=== PATIENT | female | born 1965 | race Caucasian/White ===

== ENCOUNTER 2022-02-12 11:44 | Emergency (ER) | payer BC, SELFPAY ==
[2022-02-12 11:46] VITALS: BP 179/109; PULSE 130; RESP 22; TEMP 36.6; O2SAT 99; BMI 28.3
[2022-02-12 12:12] VITALS: PULSE 84; RESP 14; O2SAT 98
--- NOTE | 2022-02-12 13:00 | US_ITS ---
STUDY: ULTRASOUND OF THE FEMALE PELVIS - COMPLETE REASON FOR EXAM: Female, 56 years old. Very heavy vaginal bleeding LMP: 8 months ago. TECHNIQUE: Transvaginal TECHNICAL QUALITY: Adequate. COMPARISON: None. FINDINGS: The uterus is anteverted and is in a midline position. The uterus measures 11.1 cm x 10.7 cm x 8.4 cm. Normal uterine cervix. The endometrium was not able to be measured due to the large fibroid. There is no demonstrated endometrial mass. There is a 6.6 cm x 6.2 cm by 7.5 cm uterine fibroid. I.U.D. - The patient does not have an I.U.D. The right ovary is non-visualized. The left ovary is non-visualized. There is no fluid in the cul-de-sac. US/Transvaginal Non- IMPRESSION: 6.6 cm x 6.2 cm x 7.5 cm uterine fibroid. Electronically Signed: Geremias Herrera MD at 14:41 EDT ,
--- NOTE | 2022-02-12 13:01 | EDS_ITS ---
HPI HPI - Female History of Present Illness Chief Complaint: Vag Bleeding Narrative Narrative: 56-year-old female presenting with heavy vaginal bleeding that started this morning. She states she is soaking through a pad about every hour. She states she initially tried to go to work today but. Had heavy bleeding which persisted so she came to the ER. She started to feel lightheaded. She states her menstrual periods are not regular anymore. She is not having any pain. She is not concerned for . She is not had any fevers or chills. Denies urinary complaints. No constipation or diarrhea. She is not on any blood thinners. PFSH PFS Home Medications NK 02/12/22 [History Last Taken Unknown] Allergy/AdvReac Type Severity Reaction Status Date / Time No Known Allergies Allergy Verified 02/12/22 11:46 Surgical History Previous section Social History Smoking Status: Never smoker [facility] ED Constitutional Constitutional ED: Denies chills or fever(s) Eyes Eyes: Denies change in vision or diplopia ENT ENT ED: Denies rhinorrhea or sore throat Cardiovascular Cardiovascular: Denies chest pain or palpitations Respiratory/Chest Respiratory/Chest: Denies cough Gastrointestinal Gastrointestinal: Denies abdominal pain, nausea or vomiting Genitourinary Genitourinary ED: Reports other Details: Vaginal bleeding and clot ; Denies dysuria or hematuria Musculoskeletal Musculoskeletal: Denies arthralgias Integumentary Denies abscess Neurologic Neurologic: Denies headache(s) or paresthesias Psychiatric Psychiatric: Denies anxiety or depression EXAM Physical Exam Const Vital Signs: 02/12/22 11:46 02/12/22 12:12 02/12/22 13:55 Temperature 98 F Temperature Source Temporal Pulse Rate 130 H 84 Pulse Rate [Lying] 90 Pulse Rate [Sitting (for 1 minute prior to obtaining)] 93 Pulse Rate [Standing (for 1 minute prior to obtaining)] 112 H Respiratory Rate 22 H 14 Blood Pressure 179/109 H Blood Pressure [Lying] 146/73 H Blood Pressure [Sitting (for 1 minute prior to obtaining)] 153/81 H Blood Pressure [Standing (for 1 minute prior to obtaining)] 157/76 H Blood Pressure Mean 132 Blood Pressure Mean [Lying] 97 Blood Pressure Mean [Sitting (for 1 minute prior to obtaining)] 105 Blood Pressure Mean [Standing (for 1 minute prior to obtaining)] 103 Pulse Ox 99 98 Oxygen Delivery Method Room Air Room Air Positive well nourished General Appearance ED: NAD; Negative for pallor HEENT Reports moist mucous membranes Eyes PERRL and EOMs intact bilaterally Resp normal respiratory effort and clear to auscultation bilaterally Cardio regular rate GI normal to inspection, nondistended, normoactive bowel sounds Palpation: Negative for tender, guarding or rigid Extremity normal to inspection Neuro oriented x3 and CN's II-XII intact bilaterally Sensorium / Orientation: alert and oriented to person Psych mental status grossly normal Skin no rashes or lesions noted and no wounds General Skin Exam: Negative for jaundice or pallor MDM MDM MDM Narrative Medical decision making narrative: VisitPresenting with vaginal bleeding which started this morning. She states its been excessive but she has been bleeding through a heavy pad every hour. Patient states that she began to be lightheaded and came in for evaluation. Orthostatic vital signs are negative. Patient appears pink and conjunctiva are not pale. CBC shows a normal hemoglobin of 13.7. White blood cell count 5.6, platelets 234. CMP within normal limits. hCG negative. Transvaginal ultrasound shows a 6.6 x 6.2 x 7.5 uterine fibroid which is likely the cause. Patient counseled on the finding and recommended to follow-up with gynecology. She states that she lives in the [facility] and will find one there. Patient discharged home in stable condition. Impression: 1. Dysfunctional uterine bleeding 2. Uterine fibroid 3. Lightheaded Lab Data Attestation: I reviewed the patient's lab results. Labs: Laboratory Results - last 24 hr 02/12/22 02/12/22 02/12/22 13:05 13:05 13:05 WBC 5.6 RBC 5.27 Hgb 13.7 Hct 41.9 MCV 79.5 L MCH 26.0 L MCHC 32.7 RDW Std Deviation 42.8 RDW Coeff of Douglas 15.0 H Plt Count 234 MPV 10.2 Immature Gran % (Auto) 0.400 Neut % (Auto) 71.9 H Lymph % (Auto) 18.0 L Grand % (Auto) 7.0 Eos % (Auto) 2.3 Baso % (Auto) 0.4 Absolute Neuts (auto) 4.0 Absolute Lymphs (auto) 1.01 Nucleated RBC % 0 Sodium 141 Potassium 3.6 Chloride 111 H Carbon Dioxide 24.0 Anion Gap 6 BUN 16 Creatinine 0.58 Estim Creat Clear Calc 95.75 Est GFR (MDRD) Af Amer 138 Est GFR (MDRD) Non-Af 114 BUN/Creatinine Ratio 27.4 H Glucose 95 Calcium 9.5 Total Bilirubin 0.40 AST 20 ALT 40 Alkaline Phosphatase 107 Total Protein 7.7 Albumin 3.9 Globulin 3.8 Albumin/Globulin Ratio 1.0 HCG, Quant < 1 Radiography Diagnostic Testing: Clinical Impression(s) from Imaging Studies Transvaginal US 02/12/22 13:00 IMPRESSION: 6.6 cm x 6.2 cm x 7.5 cm uterine fibroid. Electronically Signed: Geremias Herrera MD at 14:41 EDT Reading Location ID and State: [facility] / [place] , Service support , Discharge Plan Triage Chief Complaint: Vag Bleeding ED Provider: Isidro Flanagan Dx/Rx/DC Orders Instructions: ED Dysfunctional Uterine Bleeding, ED Uterine Fibroids Prescriptions: No Action NK Primary Care Provider: Care Physician,No Primary Referrals: Care Physician,No Primary [Primary Care Provider] - Disposition Disposition: Home, Self Care
[2022-02-12 13:14] LABS: Absolute Lymphocyte Count 1.01 X10^3/uL (0.83-4.51); Basophil# 0.02 X10^3/uL; Basophil% 0.4 % (0-1); Eosinophil# 0.13 X10^3/uL; Eosinophils% 2.3 % (0-5); Hematocrit 41.9 % (37-47); Hemoglobin 13.7 g/dL (12.0-15.0); Lymphocyte # 1.01 X10^3/ul (0.83-4.51); Mean Corp Hgb Conc 32.7 g/dL (32-36); Mean Corpuscular Volume 79.5 fL (81-99); Mean Platelet Vol. 10.2 fl (6.2-12.0); Monocyte# 0.39 X10^3/uL; NRBC Flagged by Analyzer 0 % (0-5); Neutrophil # 4.03 X10^3/uL (2.7-7.7); Neutrophil % 71.9 % (47-70); Platelet Count 234 K/mm3 (150-450); RBC Distribution Width SD 42.8 fl (35.1-43.9); Red Blood Count 5.27 M/mm3 (4.2-5.4); White Blood Count 5.6 K/mm3 (4.4-11.0)
[2022-02-12 13:34] LABS: AST(SGOT) 20 U/L (15-37); Alanine Aminotransfer ALT/SGPT 40 U/L (13-56); Albumin, Serum 3.9 g/dL (3.2-5.0); Alkaline Phosphatase 107 U/L (45-117); Anion Gap 6 (5-15); BUN 16 mg/dL (7-18); BUN/Creat Ratio 27.4 RATIO (10-20); Calcium,Total 9.5 mg/dL (8.5-10.1); Chloride 111 mmol/L (98-107); Creatinine, Serum 0.58 mg/dL (0.55-1.02); EST Glomerular Filtration Rate 114 mL/min (>60); Est Glom Filt Rate - Afr Amer 138 mL/min (>60); Estimated Creatinine Clearance 95.75 ml/min; Globulin 3.8 g/dL (2.2-4.2); Glucose 95 mg/dL (74-106); Potassium 3.6 mmol/L (3.5-5.1); Protein, Total 7.7 g/dL (6.4-8.2); Sodium Level 141 mmol/L (136-145)
[2022-02-12 13:55] VITALS: BP 146/73; BP 153/81; BP 157/76; PULSE 112; PULSE 90; PULSE 93
[2022-02-12 14:02] LABS: hCG Titer Quant., Serum < 1 mIU/mL (1-3)
== END 2022-02-12 15:32 | disposition home or self-care (01) ==
PROVIDERS: Emergency Provider Student in an Organized Health Care Education/Training Program; Visit Provider Student in an Organized Health Care Education/Training Program
DX: N93.8 Other specified abnormal uterine and vaginal bleeding (principal); D25.9 Leiomyoma of uterus, unspecified; R42 Dizziness and giddiness
CPT/HCPCS: 76830; 80053; 84702; 85025; 96374; 96375; 99285; J7030; A4216